=== PATIENT | male | born 1955 | race Caucasian/White ===

== ENCOUNTER 2017-04-10 19:57 | Observation (INO) | payer MEDICARE ==
[~2017-04-10] VITALS: Ht 177.8 cm; Wt 113.9 kg
--- NOTE | ~2017-04-10 | ECH ---
Transthoracic Echocardiography Report (TTE) Demographics Patient Name JETT GRIMES Date of Study 04/11/2017 Patient Number [id number] Visit Number [id number] Date of 1955 Room Number 418 Accession Number [id number] Gender Male Age 61 year(s) Referring Meghna Christianson MD Youth Development Professional Peg Murphy Physician Don Wasserman RDCS, MD Physician Interpreting Meghna Christianson MD Builder'S Labourer Physician Supervising Ordering Physician Meghna Christianson MD, MD/MLP Nurse Stress [employer] Process Technician Conclusions Contractility Score Summary Normal Left Ventricular contractility was noted. Summary Technically adequate exam. The estimated left ventricular ejection fraction is 50-55%. Mild concentric left ventricular hypertrophy. The left atrium is severely dilated by LA volume index measurement. The right atrium is mildly dilated. The ascending aorta appears mildly dilated. The maximum diameter measures 3.7 cm. Ejection fraction and wall motion normal today. Improved from study of 09/15/2015. Procedure Type of Study TTE procedure:Echo Complete SF. Procedure Date Date: 04/11/2017 Start: 01:25 PM Technical Quality: Adequate visualization Indications:Chest pain, non-ischemic cardiomyopathy, Shortness of breath, Atrial fibrillation, pacemaker/defibrillator, Diabetes, Coronary artery disease and Hypertension. Appropriate Use Criteria: 9 Height: 70 inches Weight: 251 pounds BSA: 2.3 m Rhythm: Atrial fibrillation HR: 70 bpm BP: 108/58 mmHg M-Mode/2D Measurements LV Diastolic Dimension: 5.42 cm LV Systolic Dimension: 3.77 cm LV Septum Diastolic: 1.17 cm LV PW Diastolic: 1.16 cm AO Root Dimension: 3.44 cm Cardiac Output: 5.69 l/min LA Dimension: 4.39 cm Cardiac Index: 2.47 l/min*m RV Diastolic Dimension: 3.28 cm LA volume index: 51 ml/m LVOT: 2.26 cm LVOT VTI: 20.27 cm RV Base: 3.9 cm LV Stroke volume: 81.27 ml RV Mid: 3 cm LV Stroke volume index: 35.33 ml/m TAPSE: 2.4 cm TDI-S': 14 cm/s Doppler Measurements AV Peak Velocity: 1.08 m/s MV Peak E-Wave: 1.01 m/s AV Peak Gradient: 4.68 mmHg AV Mean Gradient: 3.05 mmHg MV P1/2t: 50.9 msec LVOT Peak Velocity: 0.95 m/s AV Area (Continuity):3.54 cm MV Area (PHT): 4.33 cm TR Velocity:2.36 m/s PV Peak Velocity: 1.07 m/s TR Gradient:22.28 mmHg PV Peak Gradient: 4.57 mmHg Estimated RAP:3 mmHg Estimated PASP: 25.28 mmHg Estimated RVSP: 25 mmHg RA Area: 20.91 cm Findings Left Ventricle The left ventricle is normal in size . Mild concentric left ventricular hypertrophy. Diastolic function indeterminate due to patient's arrhythmia. Right Ventricle Normal right ventricle structure and function. Left Atrium The left atrium is severely dilated by LA volume index measurement. Right Atrium The right atrium is mildly dilated. Mitral Valve Normal mitral valve structure and function. Trivial mitral regurgitation by color Doppler. Aortic Valve The aortic valve is mildly sclerotic. Tricuspid Valve Normal tricuspid valve structure and function. Trivial tricuspid regurgitation by color Doppler. Normal pulmonary pressures. Pulmonic Valve Normal pulmonic valve structure and function. Pericardial Effusion No evidence of pericardial effusion. Miscellaneous The ascending aorta appears mildly dilated. The maximum diameter measures 3.7 cm. Pleural Effusion No evidence of pleural effusion. Contractility Score LV regional wall motion:(0-Non visualized 1-Normal 2-Hypokinesis 3-Akinesis 4-Dyskinesis 5-Aneurysm) Signature
--- NOTE | ~2017-04-10 | FD ---
ADMIT: 04/10/2017 RM/LOC: 418 [facility] MR#: [id number] 26[address] [facility] [address] JETT GRIMES Breanna [address] [place] [address] Final Diagnosis SEX: M AGE: 61 : 1955 ADMISSION DATE: 04/10/2017 DISCHARGE DATE: 04/11/2017 CONSULTATIONS: Cardiology. FINAL DIAGNOSES: 1. Chest pain, resolved. 2. Dyspnea, resolved. 3. Coronary artery disease. 4. Chronic systolic heart failure. 5. Diabetes mellitus. 6. Major depressive disorder. 7. Diabetic left toe ulcer, resolving. 8. Hyperlipidemia. Less than 30 minutes spent on discharge activities. Teo Ochoa MD/ njv JOB #: [id number] CC: Teo Ochoa MD, Attending Physician Teo Ochoa MD, Family Physician
[~2017-04-10 19:57] MED LIST: ALDACTONE DPS25 MG PO; COREG DPS6.25 MG PO; DELTASONE DPS10 MG PO; DESYREL DPS100 MG PO; DULERA 100/58.8 GM IH; HUMALOG100 UNIT/1 SQ; JANUVIA100 MG PO; KLONOPIN DPS1 MG PO; LANTUS100 UNITS/ SQ; LASIX DPS40 MG PO; LASIX DPS80 MG PO; LEVAQUIN DPS750 MG PO; LEVOTHYROXINE100 MCG PO; LIPITOR DPS40 MG PO; LOPID DPS600 MG PO; MIRAPEX1 MG PO; MUCINEX600 MG PO; TESSALON PERLE100 M1 PO; ZESTRIL10 MG PO
[2017-04-12] MEDS ORDERED: GLUCOPHAGE-DPS500 MG PO (15:08)
[2017-04-12] MEDS ORDERED: LISINOPRIL10 MG PO (15:11)
[2017-04-12] MEDS ORDERED: NEURONTIN DPS100 MG PO (15:14)
[2017-04-12] MEDS ORDERED: COUMADIN7.5 MG PO (15:15)
[2017-04-12] MEDS ORDERED: SEROQUEL DPS100 MG PO (15:16)
[2017-04-12] MEDS ORDERED: COUMADIN5 MG PO (15:16)
[2017-04-12] MEDS ORDERED: AMARYL1 MG PO (15:16)
--- NOTE | 2017-04-13 08:45 | ER ---
ADMIT: 04/10/2017 RM/LOC: 418 [facility] MR#: [id number] [address] [address] JETT GRIMES [address] [place] [address] Emergency Room Report SEX: M AGE: 61 : 1955 DATE: 04/10/2017 HISTORY OF PRESENT ILLNESS: The patient is a 61-year-old male with a past medical history of diabetes, atrial fibrillation on Coumadin and status post placement of ICD, who came to the ER with chief complaint of intermittent shortness of breath and moderate chest pressure 5/10. Since Monday, pain is not exertional and nonpleuritic and is pressure like as in the anterior chest, middle, and left side chest. There is no radiation of pain. The patient denies any specific diaphoresis. At the moment, pain is pressure like and 5/10, and the patient has no shortness of breath at the moment. The patient denies any cough or fever. The patient also states that on and off he had bilateral lower extremity swelling, which is resolved at the moment. PHYSICAL EXAMINATION: GENERAL: The patient was in no obvious distress. The patient was alert and oriented. VITAL SIGNS: His blood pressure was 127/79, heart rate was 62, respiratory rate was 20, and temperature was 100.1. HEAD AND NECK: There is no bruit on the neck. Trachea is midline. CHEST: Clear bilaterally. HEART: I can hear S1-S2 without any murmurs. ABDOMEN: Soft. There is no bruit or pulsating mass in the abdomen. There is no swelling or tenderness on extremities. EKG showed paced rhythm without any ST or T changes, the patient received aspirin 324 mg p.o., the patient also received nitroglycerin 0.4 mg sublingual, which decreased the pain pressure from 5 to 1, and after the 2nd nitroglycerin, the pain pressure came to 0, troponin I was negative. D-dimer was very mildly elevated to 0.53. ProBNP was 3422. Chest x-ray was negative and noncontributory, with the diagnosis of chest pain, rule out angina acute coronary syndrome. The patient was admitted for further followups and treatments. Morgan Godwin MD/ ian JOB #: [id number] CC: Teo Ochoa MD, Attending Physician Teo Ochoa MD, Family Physician
--- NOTE | 2017-04-13 09:19 | CO ---
ADMIT: 04/10/2017 RM/LOC: 418 [facility] MR#: [id number] [address] [address] JETT GRIMES [address] [place] [address] Consultation SEX: M AGE: 61 : 1955 DATE OF CONSULTATION: 04/11/2017 ATTENDING PHYSICIAN: Teo Ochoa CONSULTING PHYSICIAN: Rinku Coffman MD REASON FOR CONSULTATION: Chest pain, history of a nonischemic cardiomyopathy. HISTORY OF PRESENT ILLNESS: The patient is a pleasant 61-year-old, male, well known to [facility]. He has a history of a nonischemic cardiomyopathy with his last ejection fraction approximately only a year ago of 25%. He is status post BiV AICD. His heart catheterization in 2008 upon diagnosis, showed his coronary arteries to be normal. A year ago, he had a negative stress test in August of 2015. This was negative for ischemia, but it did show mildly abnormal images revealing a fixed defect in the entire septum likely secondary to left bundle branch block. He has a history of permanent atrial fibrillation. He is status post AV nghia ablation. On Monday, he began to have some chest tightness and heaviness. He states this was all throughout his torso and he also had some abdominal bloating. He had eaten some chili that he had made at home with some [place] peppers and ended up having heartburn the next day and some diarrhea. He states the discomfort was constant even though the heartburn and diarrhea seemed to resolve with the discomfort and shortness of breath lingered. He came into the emergency room yesterday, he was given nitroglycerin which relieved the pain. He does not weigh himself daily. He thinks he weighs about 240 to 241 pounds at home. He denies any increased lower extremity edema. He rarely has any palpitations, and occasionally has some presyncopal feelings. He denies any PND. He does sleep in a chair and has for at least a year because of back pain and shortness of breath. He has been compliant with his medications. PAST MEDICAL HISTORY: Positive for: 1. Hypertension. 2. Diabetes. 3. Remote history of tobacco abuse. 4. Hyperlipidemia. 5. Permanent atrial fibrillation. 6. Nonischemic cardiomyopathy with an EF of 25%, status post Bi V AICD. 7. Restless legs syndrome. 8. Hypothyroidism. FAMILY HISTORY: Positive for cancer, heart disease, and diabetes. SOCIAL HISTORY: He is single. Works part-time at a local daycare. He used to smoke, but quit at the time of his diagnosis in 2008. MEDICATIONS: Include: 1. Metformin 1000 mg twice daily. ADMIT: 04/10/2017 RM/LOC: 418 [facility] MR#: [id number] [address] [address] JETT GRIMES [address] [place] [address] Consultation SEX: M AGE: 61 : 1955 2. Clonazepam 1 mg at bedtime. 3. Januvia 100 mg every day. 4. Trazodone 100 mg at bedtime. 5. Pramipexole 1 mg two tabs at bedtime. 6. Coreg 6.25 mg twice daily. 7. Quetiapine 100 mg two tabs at bedtime. 8. Gabapentin 100 mg three times daily. 9. Lopid 600 mg twice daily. 10.Warfarin 5 mg Monday, , Monday, and Monday. 11.Warfarin 7.5 mg Monday, Monday, and Monday. 12.Lasix 80 mg every day. 13.Lasix 80 mg one half tab at 3 p.m. 14.Glimepiride 1 mg every day. 15.Synthroid 100 mcg every day. 16.Lisinopril 10 mg every day. ALLERGIES: NO KNOWN MEDICAL ALLERGIES. REVIEW OF SYSTEMS PLEASE: GENERAL: Denies fatigue, fever, chills, sweats, rash, or weight loss. EYES: Denies double vision, blurred vision, cataracts, or glaucoma. ENT: Denies hearing loss or problems with nose, mouth or throat. PULMONARY: Denies cough, sputum production, asthma, emphysema or bronchitis. Denies snoring loudly, wakefulness at night, or fatigue upon awakening. He has some shortness of breath due to his COPD. GASTROINTESTINAL: Denies heartburn or difficulty swallowing. No change in bowel habits. Denies dark or bloody stools. No history of ulcers, hiatal hernia, or gallbladder or liver disease. He has GERD, and did have some recent diarrhea. GENITOURINARY: Denies dysuria, hematuria, nocturia, urinary tract infection, or kidney stones. Denies history of renal insufficiency or failure. He has some urinary frequency. MUSCULOSKELETAL: Denies history of arthritis or gout. Denies muscle or joint pains. ENDOCRINE: Denies history of thyroid dysfunction or diabetes. HEMATOLOGIC: Denies history of anemia, easy bruising, or cancer. NEUROLOGIC: Denies chronic headaches, dizziness, syncope, stroke, seizures or numbness or tingling. PSYCHIATRIC: Denies history of mental illness or feelings of depression. PHYSICAL EXAMINATION: Per Dr. Coffman: VITAL SIGNS: Temp 98.2, pulse 70, respirations 16, blood pressure 108/58, O2 saturation 97%. SKIN: Mcgrath, warm and dry. EYES: Sclerae clear. No xanthelasmas. ENT: Oral mucosa is pink and moist. No jugular venous distention or carotid bruits. ADMIT: 04/10/2017 RM/LOC: 418 [facility] MR#: [id number] [facility] [address] [address] JETT GRIMES [address] [place] [address] Consultation SEX: M AGE: 61 : 1955 CHEST: Respirations are even and unlabored. Lungs are clear to auscultation. HEART: Regular rate and rhythm. Normal S1, S2. No murmurs, rubs or gallops. ABDOMEN: Soft and nontender. MUSCULOSKELETAL: Gait is normal. EXTREMITIES: Peripheral pulses palpable. No clubbing, cyanosis or edema. PSYCHIATRIC: Alert and oriented. Mood and affect are appropriate. ASSESSMENT: Per Dr. Coffman. 1. Epigastric pain. 2. Nonischemic cardiomyopathy. 3. Chronic systolic heart failure. 4. Biventricular AICD. 5. Permanent atrial fibrillation. PLAN: Per Dr. Coffman. His symptoms seem atypical for coronary artery disease. It sounds more gastrointestinal in nature. If his echo is unchanged and symptoms do not recur with activity, I am okay to discharge to home. He would like to get home this afternoon to go back to work. We will continue to monitor symptoms and diagnostics and amend our plan accordingly. Thank you for allowing us to participate in the care of this patient. LEONOR March / Sarah. Sammy Coffman MD / ian JOB #: [id number] CC: Teo Ochoa, Attending Physician Teo Ochoa, Family Physician
--- NOTE | 2017-04-14 07:33 | HP ---
ADMIT: 04/10/2017 RM/LOC: 418 [facility] MR#: [id number] [address] [address] JETT GRIMES [address] [place] [address] History and Physical SEX: M AGE: 61 : 1955 DATE OF SERVICE: CHIEF COMPLAINT: Chest pain and dyspnea. HISTORY OF PRESENT ILLNESS: Selvin is a very nice 61-year-old man, who does have a complex medical history. Recently, he has been following with myself in clinic secondary to a nonhealing ulcer of his right great toe which with the help of Wound Care has improved dramatically, as well as obtaining appropriate shoes for his diabetes. He was scheduled to follow up with his military logistics specialist for a basic followup, however, he did get confused and missed his appointment. He started to have pain on Monday which was persistent. He had no energy. He was fatigued. He had difficulty walking up stairs. Did notify on Monday. With the concerning nature of his symptoms, he was directed to the ER. He was evaluated in the ER by Dr. Godwin. Did have basic evaluation with a negative cardiac enzymes. He was admitted last night to my service for chest pain rule out. His cardiac enzymes have remained negative. His chest pain is now resolved. However, he does have an elevated white count, but is afebrile. He no longer has shortness of breath. He is feeling well, and he wants to be discharged to home as soon he can as he has a prior engagement at 11:00 and 03:00 today. He however did describe the pain as a wrapped like sensation around his chest. Decreased exercise tolerance, and fatigue. PAST MEDICAL HISTORY: 1. Atrial fibrillation. 2. Chronic systolic heart failure, EF 35%, implanted pacemaker ICD. 3. Nonobstructive coronary artery disease. 4. Type 2 diabetes mellitus. 5. Hypertension. 6. History of tobacco abuse. 7. Depression. 8. Hypothyroidism. 9. Restless legs syndrome. 10.Dyslipidemia. MEDICATIONS: Current medications include: 1. Metformin. 2. Clonazepam. 3. Januvia. 4. Trazodone. 5. Pramipexole. 6. Coreg. 7. Quetiapine. 8. Gabapentin. 9. Lopid. 10.Warfarin. 11.Lasix. 12.Glimepiride. ADMIT: 04/10/2017 RM/LOC: 418 [facility] MR#: [id number] [address] [address] JETT GRIMES [address] [place] [address] History and Physical SEX: M AGE: 61 : 1955 13.Synthroid. 14.Lisinopril. ALLERGIES: NO KNOWN MEDICAL ALLERGIES. SOCIAL HISTORY: He is a previous smoker. He does not currently drink. He does not do drugs. He does have a significant other that he does live with. FAMILY HISTORY: COPD, unspecified cancer, multiple siblings with diabetes as well as heart disease. REVIEW OF SYSTEMS: Complete review of systems reviewed and noted per HPI. PHYSICAL EXAMINATION: VITAL SIGNS: Blood pressure is 108/50, pulse 70, respiratory rate is 16, temperature is 98.2 on room air. GENERAL: He is awake, alert, and oriented x3. No acute distress. HEENT: Normocephalic and atraumatic. Pupils are equal, round, and reactive to light. No nasal discharge. NECK: Supple. Trachea midline. No supraclavicular or cervical lymphadenopathy. HEART: Regular. LUNGS: Distant, but clear. ABDOMEN: Soft, nontender. EXTREMITIES: No clubbing or cyanosis. He has a healing ulcer of his right great toe which looks dramatically better. LABORATORY DATA: Hemoglobin is 12, white blood cells are 14.8, platelets of 309. Sodium 138, potassium is 3.4, chloride is 107, bicarb is 22, BUN is 20, creatinine is 1, glucose is 99, calcium is 8.6. A1c is 7.7, total protein 6.9, albumin is 3.4, AST is 20, ALT is 23, alkaline phosphatase is 51, bilirubin is 0.6, LDL is 113, troponin 0.024, next 0.020, next pending. Chest x-ray, no acute process. EKG is paced. ASSESSMENT AND PLAN: 1. Chest pain. 2. Coronary artery disease. 3. Chronic systolic heart failure. 4. Diabetes mellitus. 5. Depressive disorder. 6. Persistent left diabetic toe ulcer. 7. Hyperlipidemia. 8. Dyspnea. We will go ahead and maintain him on observation status. [facility] will see the patient as well as they will interrogate his pacemaker. We will add a UA micro secondary to his elevated white count. No cellulitis. Toe is healing well. I will go ahead and look into the records to see why he ADMIT: 04/10/2017 RM/LOC: 418 [facility] MR#: [id number] [address] [address] JETT GRIMES [address] [place] [address] History and Physical SEX: M AGE: 61 : 1955 was taken off his statin. He seem to remember that he did have an intolerance in the past, however, we will verify that; if not, we will consider reinstituting statin on him as his LDL is a little bit elevated at 113. The patient is currently chest pain-free, this makes more concerning for potentially arrhythmia, which we probably could look at on his pacemaker. The patient is a full code. Discussed this plan with the patient, expressed understanding, was in agreement, and had no further questions. Teo Ochoa MD/ ian JOB #: [id number] CC: Teo Ochoa, Attending Physician Teo Ochoa, Family Physician
== END 2017-04-11 17:00 | disposition home or self-care (01) ==
LOC: ER 19:57 → 4PCU 21:30
PROVIDERS: ADMIT Internal Medicine
DX: R07.9 Chest pain, unspecified (principal); R10.13 Epigastric pain; I25.10 Atherosclerotic heart disease of native coronary artery without angina pectoris; I11.0 Hypertensive heart disease with heart failure; I50.22 Chronic systolic (congestive) heart failure; E11.621 Type 2 diabetes mellitus with foot ulcer; L97.529 Non-pressure chronic ulcer of other part of left foot with unspecified severity; I48.91 Unspecified atrial fibrillation; F32.9 Major depressive disorder, single episode, unspecified; I42.9 Cardiomyopathy, unspecified; Z23 Encounter for immunization; I48.2 Chronic atrial fibrillation; E78.5 Hyperlipidemia, unspecified; Z79.01 Long term (current) use of anticoagulants; Z79.899 Other long term (current) drug therapy; Z79.52 Long term (current) use of systemic steroids; Z95.810 Presence of automatic (implantable) cardiac defibrillator